=== PATIENT | male | born 1995 | race Two or more races ===

== ENCOUNTER 2017-02-10 13:07 | Emergency (ER) | payer SELFPAY ==
[~2017-02-10] VITALS: Ht 193 cm; Wt 81.6 kg
[2017-02-10 15:25] VITALS: BP 129/73
[2017-02-10] MEDS ORDERED: TETANUS-DIPTH-ACEL PERTUSSIS 0.5ML SYRG IM ONE (15:30)
[2017-02-10] MEDS ORDERED: BACITRACIN TOP OINT 1 UD PKG TOP ONE (15:30)
[2017-02-10] MEDS ORDERED: cefTRIAXone SOD 1,000 MG VL IM ONE (16:00)
== END 2017-02-10 16:02 | disposition home or self-care (01) ==
LOC: ER 13:07
DX: S51.832A Puncture wound without foreign body of left forearm, initial encounter (principal); S01.431A Puncture wound without foreign body of right cheek and temporomandibular area, initial encounter; W54.0XXA Bitten by dog, initial encounter; Y93.89 Activity, other specified; Y99.8 Other external cause status; Y92.830 Public park as the place of occurrence of the external cause
CPT/HCPCS: 90471; 90715; 96372; 99284; J0696

== ENCOUNTER 2019-08-04 13:28 | Emergency (ER) | payer OTHER ==
[~2019-08-04] VITALS: Ht 193 cm; Wt 89.8 kg
[2019-08-04] MEDS ORDERED: ACETAMINOPHEN 500 MG TAB PO ONE ×2 (14:07→14:15)
[2019-08-04 15:59] VITALS: BP 104/52
[2019-08-04] MEDS ORDERED: cefTRIAXone SOD 1,000 MG VL IM ONE (16:15)
[2019-08-04] MEDS ORDERED: IBUPROFEN 800 MG TAB PO ONE (17:00)
== END 2019-08-04 17:23 | disposition home or self-care (01) ==
LOC: ER 13:28
DX: J06.9 Acute upper respiratory infection, unspecified (principal); J04.0 Acute laryngitis
CPT/HCPCS: 71046; 96372; 99283; J0696